=== PATIENT | male | born 1990 | race African-American/Black ===

== ENCOUNTER 2017-10-15 11:12 | Emergency (ER) | payer OTHER ==
[~2017-10-15] VITALS: Ht 170.2 cm; Wt 108.9 kg
[2017-10-15] MEDS ORDERED: AMOX500C PO (13:11)
[2017-10-15] MEDS ORDERED: HYDR-971 PO (13:11)
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
[2017-10-15 13:40] VITALS: BP 157/82
== END 2017-10-15 13:49 | disposition home or self-care (01) ==
LOC: ER 11:12
DX: S02.5XXA Fracture of tooth (traumatic), initial encounter for closed fracture (principal); S06.9X0A Unspecified intracranial injury without loss of consciousness, initial encounter; X58.XXXA Exposure to other specified factors, initial encounter; Y93.89 Activity, other specified; Y92.89 Other specified places as the place of occurrence of the external cause; Y99.8 Other external cause status
CPT/HCPCS: 99283

== ENCOUNTER 2021-07-11 16:26 | Emergency (ER) | payer OTHER ==
[~2021-07-11] VITALS: Ht 172.7 cm; Wt 118.1 kg
[~2021-07-11 16:26] MED LIST: AMOX500C PO; HYDR-3164 PO
[2021-07-11] MEDS ORDERED: HYDROmorphone 2 MG/ML INJ. IVP ONE ×2 (16:45→17:00)
[2021-07-11] MEDS ORDERED: IV NORMAL SALINE 1000ML BAG 1,000 ML IV ONE (16:45)
[2021-07-11 16:52] LABS: BASO # 0.1 x10^3/uL (0.0-0.2); BASO % 1 % (0-3); EOS # 0.3 x10^3/uL (0.0-0.7); EOS % 3 % (0-3); HEMATOCRIT 42.9 % (39.0-53.0); HEMOGLOBIN 14.2 g/dL (13.0-17.5); LYMPH # 2.4 x10^3/uL (1.0-4.8); LYMPH % 25 % (24-48); MEAN CORPUSCULAR HEMOGLOBIN 28 pg (25-35); MEAN CORPUSCULAR HGB CONC 33 g/dL (31-37); MEAN CORPUSCULAR VOLUME 85 fL (79-100); MONO # 0.7 x10^3/uL (0.0-1.1); MONO % 7 % (0-9); NEUT # 6.3 x10^3/uL (1.8-7.7); NEUT % 65 % (31-73); PLATELET COUNT 232 x10^3/uL (140-400); RED BLOOD COUNT 5.04 x10^6/uL (4.30-5.70); RED CELL DISTRIBUTION WIDTH 15.6 % (11.5-14.5); WHITE BLOOD COUNT 9.8 x10^3/uL (4.0-11.0)
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
[2021-07-11 17:02] LABS: PROTHROMBIN TIME PATIENT 13.7 SEC (11.7-14.0)
[2021-07-11 17:11] LABS: CALCIUM 9.6 mg/dL (8.5-10.1); CREATININE 1.1 mg/dL (0.7-1.3); GFR 95.8; POTASSIUM 4.1 mmol/L (3.5-5.1)
[2021-07-11 17:17] LABS: ALBUMIN 4.6 g/dL (3.4-5.0); ALBUMIN/GLOBULIN RATIO 1.4 (1.0-1.7); TOTAL BILIRUBIN 0.5 mg/dL (0.2-1.0)
[2021-07-11] MEDS ORDERED: HYDR-2761 PO (17:36)
[2021-07-11 18:44] VITALS: BP 182/84
[2021-07-11] MEDS ORDERED: ONDANSETRON ODT 4 MG TAB.RAPDIS. PO ONE (19:30)
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
== END 2021-07-11 19:45 | disposition home or self-care (01) ==
LOC: ER 16:26
DX: S97.81XA Crushing injury of right foot, initial encounter (principal); F17.200 Nicotine dependence, unspecified, uncomplicated; V69.88XA Occupant (driver) (passenger) of heavy transport vehicle injured in other specified transport accidents, initial encounter; Y92.488 Other paved roadways as the place of occurrence of the external cause; Y93.89 Activity, other specified; Y99.8 Other external cause status
CPT/HCPCS: 36415; 73630; 80053; 85025; 85610; 85730; 96361; 96374; 96376; 99285; G0480; J1170; J7030